=== PATIENT | female | born 1955 | race African-American/Black ===

== ENCOUNTER 2023-11-28 04:20 | Emergency (ER) | payer MEDICAID, MEDICARE ==
[2023-11-28] MEDS ORDERED: Morphine 4 MG/ML VIAL ONE ×3 (04:46→13:12)
[2023-11-28] MEDS ORDERED: Ondansetron PF 4 MG/2 ML Vial ONE ×2 (04:46→13:12)
[2023-11-28 05:19] LABS: #Basophils 0.05 10x3/uL (0.0-0.2); #Eosinphils 0.09 10x3/uL (0.0-0.5); #Monocytes 0.81 10x3/uL (0.0-1.1); #Neutrophils 6.32 10x3/uL (1.5-8.4); %Basophils 0.6 % (0.0-2.0); %Lymphocytes 16.7 % (18.0-47.0); %Monocytes 9.2 % (0.0-10.0); %Neutrophils 71.9 % (40.0-75.0); Hematocrit 39.8 % (34.9-44.5); Hemoglobin 13.9 g/dL (12.0-15.5); Mean Corpuscular HGB CONC 34.9 g/dL (32.0-36.0); Mean Corpuscular Hemoglobin 35.4 pg (27.0-33.0); Mean Corpuscular Volume 101.3 fL (81.6-98.3); Mean Platelet Volume 9.6 fL (7.4-10.4); Platelet Count 251 10x3/uL (150-450); RBC Distribution Width 12.9 % (11.5-14.5); Red Blood Cell (RBC) Count 3.93 10x6/uL (3.90-5.03); White Blood Cell (WBC) Count 8.8 10x3/uL (3.5-10.5)
[2023-11-28 05:35] LABS: ALT (SGPT) 20 U/L (8-55); AST (SGOT) 22 U/L (5-34); Albumin 3.4 g/dL (3.4-4.8); Alkaline Phosphatase 60 U/L (40-110); Anion Gap 16 mmol/L (10-20); BUN (Urea Nitrogen) 14 mg/dL (9.8-20.1); Bilirubin, Total 0.5 mg/dL (0.2-1.2); Calc. Creatinine Clearance 0 mL/min (70-130); Calcium 9.1 mg/dL (7.8-10.44); Carbon Dioxide 23 mmol/L (23-31); Chloride 106 mmol/L (98-107); Estimated GFR 93; Globulin 2.9 g/dL (2.4-3.5); Glucose 152 mg/dL (80-115); Lipase 27 U/L (8-78); Potassium 2.8 mmol/L (3.5-5.1); Protein, Total 6.3 g/dL (5.8-8.1); Sodium 142 mmol/L (136-145)
[2023-11-28] MEDS ORDERED: Ketorolac Tromethamine 30 MG (1 mL) VIAL ONE (06:25)
[2023-11-28 07:18] LABS: Bilirubin Neg (Negative); Blood, Urine Negative (Negative); Glucose, Urine (Dipstick) Normal (Negative); Ketone, Urine Negative (Negative); Leukocyte Negative (Negative); Nitrite Negative (Negative); Protein, Urine (Dipstick) Negative (Neg-Trace); Urobilinogen Normal mg/dL (Less than 2)
[2023-11-28 07:22] LABS: Clarity Clear (Clear)
[2023-11-28 07:26] LABS: CAUTI Indications for Culture Pelvic or flank pain; RBC/HPF 0-3 HPF (0-3); WBC/HPF 0-3 HPF (0-3)
[2023-11-28 07:27] LABS: Bacteria/HPF 1+ HPF (None Seen); Urine Culture Reflex No No
[2023-11-28] MEDS ORDERED: Mag-Al Plus 1200/1200/120 MG (30 mL) UDCUP ONE (10:19)
[2023-11-28] MEDS ORDERED: Lidocaine 2% Viscous 10 mL, Alum & Magn 30 mL SSW SCH (10:30)
[2023-11-28] MEDS ORDERED: Famotidine 20 MG TAB ONE (10:43)
[2023-11-28] MEDS ORDERED: Iopamidol 370 76% 100 ML VIAL ONE ×2 (11:12)
[2023-11-28] MEDS ORDERED: Potassium Bicarbonate/Cit Ac 25 MEQ TAB ONE (11:51)
[2023-11-28 12:17] LABS: Troponin I Less than 0.010 ng/mL (< 0.028)
== END 2023-11-28 13:44 ==
LOC: CSHERS 04:20
DX: I71.20 Thoracic aortic aneurysm, without rupture, unspecified (principal); I10 Essential (primary) hypertension; F17.210 Nicotine dependence, cigarettes, uncomplicated
CPT/HCPCS: 71275; 74174; 74177; 80053; 81001; 83690; 84484; 85025; 93005; 96374; 96375; 96376; 99285; J1885; J2270; J2405